=== PATIENT | female | born 1950 | race Caucasian/White ===

== ENCOUNTER → 2024-09-18 | Day surgery (SDC) | payer MEDICARE ==
[~2024-09-18] MED LIST: ACETAMINOPHEN 1000 MG/100 ML 100 ML IV ONE; ALENDRONATE SOD70 MG PO; ASPIRIN81 MG PO; DEGLUDEC SQ; DEXAMETHASONE SOD PHOS INJ 4 MG/ML SDV ONE; FAMOTIDINE 20 MG/2 ML VIAL IV ONE; FENTANYL CITRATE/PF 100MCG/2 ML INJ ONE; INSULIN DE100 UNIT/1 SQ; JARDIANCE10 MG PO; LACTATED RINGER'S 1,000 ML ONE; LEVOTHYROXINE100 MC1 PO; LIDOCAINE HCL 2% LOCAL INJ 5 ML SDV VIAL INJ ONE; LIPITOR20 MG PO; LISINOPRIL10 MG PO; MAGNESIUM PO; METFORMIN HCL500 MG PO; MOUNJARO2.5 MG/0.5 SQ; ONDANSETRON HCL INJ 2MG/ML 2ML 2 MG/ML VIAL ONE; PROPOFOL IV EMULSION 10 MG/ML 20 ML VIAL ONE; SEVOFLURANE INHAL SOLN 250 ML PEN BTL ONE
[2024-09-18] MEDS: CEFAZOLIN SODIUM 2 GM ONE (05:55)
[2024-09-18] MEDS: LACTATED RINGER'S 1,000 ML ONE (05:55)
[2024-09-18 09:14] VITALS: TEMP 97.5
[2024-09-18 10:20] VITALS: BP 123/70; PULSE 73; RESP 18; O2SAT 99
== END | disposition home or self-care (01) ==
LOC: OR 05:25
PROVIDERS: ATTEND Podiatrist Foot Surgery
DX: D17.79 Benign lipomatous neoplasm of other sites (principal); M19.071 Primary osteoarthritis, right ankle and foot; S93.431A Sprain of tibiofibular ligament of right ankle, initial encounter; M65.871 Other synovitis and tenosynovitis, right ankle and foot; M24.071 Loose body in right ankle; E11.9 Type 2 diabetes mellitus without complications; K29.60 Other gastritis without bleeding; E03.9 Hypothyroidism, unspecified; E78.5 Hyperlipidemia, unspecified; D64.9 Anemia, unspecified; X58.XXXA Exposure to other specified factors, initial encounter; Z79.82 Long term (current) use of aspirin; Z79.84 Long term (current) use of oral hypoglycemic drugs; Z79.4 Long term (current) use of insulin; Z79.85 Long-term (current) use of injectable non-insulin antidiabetic drugs; Z79.899 Other long term (current) drug therapy
CPT/HCPCS: 27632; 27695; 29897; 88304; C1713; J0131; J1100; J2003; J2405; J2704; J3010; J7121